=== PATIENT | male | born 1995 | race Caucasian/White ===

== ENCOUNTER 2017-05-18 06:16 | Emergency (ER) | payer MEDICAID, OTHER ==
[~2017-05-18] VITALS: Ht 182.9 cm; Wt 129.0 kg
[2017-05-18] MEDS ORDERED: TETRACAINE 0.5% OPHTH DROPS 4ML OP ONE (08:45)
[2017-05-18] MEDS ORDERED: BALANCED SALT IRRIG SOLN 15ML IO ONE (08:45)
[2017-05-18] MEDS ORDERED: FLUORESCEIN SODIUM 1MG/STRIP OP ONE (08:45)
[2017-05-18 11:46] VITALS: BP 148/66
== END 2017-05-18 11:48 | disposition home or self-care (01) ==
LOC: ER 06:16
DX: H10.021 Other mucopurulent conjunctivitis, right eye (principal)
CPT/HCPCS: 99283